=== PATIENT | female | born 1990 | race African-American/Black ===

== ENCOUNTER 2016-10-21 20:37 | Emergency (ER) | payer OTHER ==
[~2016-10-21] VITALS: Ht 167.6 cm; Wt 94.9 kg
[~2016-10-21 20:37] MED LIST: BENTYL20 MG PO; CLINDAMYCIN HC300 MG PO; IBUPROFEN800 MG PO; KEFLEX500 MG PO; PRENATAL TABLE1 EAC3 PO; TYLENOL EXTRA500 MG PO; ZOFRAN4 MG PO
[2016-10-21 23:18] LABS: INFLUENZA A VIRAL ANTIGEN NEGATIVE; INFLUENZA B VIRAL ANTIGEN NEGATIVE
[2016-10-21] MEDS ORDERED: PREDNISONE20 MG PO (23:54)
[2016-10-21] MEDS ORDERED: VENTOLIN HFA18 GM IH (23:54)
[2016-10-21] MEDS ORDERED: TESSALON PERLE100 MG PO (23:54)
[2016-10-21] MEDS ORDERED: MUCINEX D ER T1 EACH PO (23:54)
[2016-10-22 00:41] VITALS: BP 115/74
== END 2016-10-22 00:43 | disposition home or self-care (01) ==
LOC: RME 20:37 → EME 20:37 → RME 10-22 00:43
PROVIDERS: Physician Assistant
DX: J06.9 Acute upper respiratory infection, unspecified (principal)
CPT/HCPCS: 71020; 87502; 94640; 99281; 99284; J7512

== ENCOUNTER → 2016-12-29 | Emergency (ER) | payer OTHER ==
[~2016-12-29] VITALS: Ht 167.6 cm; Wt 89.9 kg
[~2016-12-29] MED LIST changes: +FLAGYL500 MG PO; +MUCINEX D ER T1 EACH PO; +PREDNISONE20 MG PO; +TESSALON PERLE100 MG PO; +VENTOLIN HFA18 GM IH
[2016-12-29 10:57] LABS: ADD MIUA? YES; BILIRUBIN SMALL; BLOOD NEGATIVE; COLOR AMBER ((YELLOW)); GLUCOSE (STRIP) NEGATIVE; KETONES 5; LEUKOCYTES LARGE; NITRITE NEGATIVE; PROTEIN (STRIP) 100; SPECIFIC GRAVITY 1.033 (1.000-1.030)
[2016-12-29 10:59] LABS: INTERNAL CONTROL VALID? YES
[2016-12-29 11:19] LABS: BACTERIA 2+ /HPF; EPITHELIAL CELLS 3+ /HPF; MUCUS NONE SEEN /LPF; UCUL ADDED? YES; URINE COMMENT BUDDING YEAST; WHITE BLOOD CELLS 40-50 /HPF (0-5)
[2016-12-29 12:15] VITALS: BP 141/91
[2017-01-01 13:00] LABS: CHLAMYDIA TRACHOMATIS NEGATIVE; NEISSERIA GONORRHOEAE NEGATIVE
== END | disposition home or self-care (01) ==
LOC: EME 08:56
PROVIDERS: Emergency Medicine
DX: N89.8 Other specified noninflammatory disorders of vagina (principal); Z20.2 Contact with and (suspected) exposure to infections with a predominantly sexual mode of transmission; J45.909 Unspecified asthma, uncomplicated; F17.200 Nicotine dependence, unspecified, uncomplicated
CPT/HCPCS: 81003; 84703; 87086; 87210; 87480; 87491; 87510; 87591; 87660; 99281; 99284; J0696

== ENCOUNTER 2017-08-09 11:05 | Inpatient (IN) | payer OTHER ==
[~2017-08-09] VITALS: Ht 160 cm; Wt 87.0 kg
[2017-08-09 12:06] LABS: APPEARANCE SL.HAZY ((CLEAR)); BILIRUBIN NEGATIVE; BLOOD NEGATIVE; COLOR AMBER ((YELLOW)); GLUCOSE (STRIP) NEGATIVE; KETONES 5; LEUKOCYTES SMALL; NITRITE NEGATIVE; PROTEIN (STRIP) 100; UROBILINOGEN 0.2 MG/DL (0.2-1.0)
[2017-08-09 12:07] LABS: HEMATOCRIT 31.3 % (36.0-46.0); HEMOGLOBIN 10.8 G/DL (11.9-15.5); MCH 28.9 PG (29.0-34.0); MCHC 34.5 G/DL (30.0-36.0); MCV 83.7 FL (83-99); PLATELET COUNT 302 K/uL (156-360); RBC DIS.WIDTH-CV 14.6 % (11.8-14.6); RBC DIS.WIDTH-SD 44.7 % (39-53); RED BLOOD COUNT 3.74 M/uL (3.80-5.20); WHITE BLOOD COUNT 7.7 K/uL (4.1-10.2)
[2017-08-09 12:18] LABS: AMPHETAMINE NEGATIVE (500 ng/mL); BARBITURATES NEGATIVE (200 ng/mL); BENZODIAZEPINES NEGATIVE (150 ng/mL); BUPRENORPHINE NEGATIVE (10 ng/mL); COCAINE NEGATIVE (150 ng/mL); METHADONE NEGATIVE (200 ng/mL); METHAMPHETAMINE NEGATIVE (500 ng/mL); OPIATES (MORPHINE) NEGATIVE (100 ng/mL); OXYCODONE NEGATIVE (100 ng/mL); PHENCYCLIDINE NEGATIVE (25 ng/mL); PROPOXYPHENE NEGATIVE (300 ng/mL); THC CANNABINOIDS NEGATIVE (50 ng/mL); TRICYCLIC ANTIDEPRESSANTS NEGATIVE (300 ng/mL)
[2017-08-09 12:27] LABS: CHLORIDE 107 mEq/L (99-109); SODIUM 135 mEq/L (136-147)
[2017-08-09 12:29] LABS: GLUCOSE 73 mg/dL (70-99)
[2017-08-09 12:33] LABS: CREATININE 0.7 mg/dL (0.6-1.3); GFR ESTIMATE (CALCULATED) > 59 mL/min/; QUANTITATIVE HCG > 15000.0 MIU/ML
[2017-08-09 12:34] LABS: UREA NITROGEN (BUN) 6 mg/dL (9-23)
[2017-08-09 13:02] LABS: RED BLOOD CELLS NONE SEEN /HPF (0-5); WHITE BLOOD CELLS 0-5 /HPF (0-5)
[2017-08-09 13:03] LABS: EPITHELIAL CELLS 2+ /HPF; MUCUS 2+ /LPF
[2017-08-09 13:04] LABS: BACTERIA 2+ /HPF; UCUL ADDED? YES
[2017-08-09] MEDS ORDERED: PRENATAL TABLE1 EAC3 PO (17:17)
[2017-08-10 08:44] VITALS: BP 104/58
[2017-08-10 17:02] VITALS: BP 107/60
[2017-08-11 08:37] VITALS: BP 107/59
== END 2017-08-11 11:25 | disposition home or self-care (01) | DRG 882 ==
LOC: EME 11:05 → 1WEST 14:09 → EDOF 14:09 → 1WEST 17:16 → ENRESERV 17:16 → 1WEST 08-11 11:25
PROVIDERS: Emergency Medicine
DX: F43.22 Adjustment disorder with anxiety (principal); R45.851 Suicidal ideations; R45.850 Homicidal ideations; J45.909 Unspecified asthma, uncomplicated; F17.200 Nicotine dependence, unspecified, uncomplicated; Z33.1 Pregnant state, incidental; Z56.0 Unemployment, unspecified
CPT/HCPCS: 80048; 81003; 84702; 85027; 87086; 90839; 94799; 99281; 99284